=== PATIENT | male | born 1995 | race African-American/Black ===

== ENCOUNTER 2016-12-15 12:04 | Emergency (ER) | payer SELFPAY ==
[~2016-12-15 12:04] MED LIST: CEPHALEXIN 500 MG CAP PO SCH
[2016-12-15 12:10] VITALS: RESP 16; TEMP 97.9
--- NOTE | 2016-12-15 12:56 | EDPHY ---
H & P Stated Complaint: lac L wrist; inyentional self afflicted; hx cutting Time Seen by Provider: 12/15/16 12:41 HPI/ROS: CHIEF COMPLAINT: "I cut my wrist" HISTORY OF PRESENT ILLNESS: 20-year-old male history of cutting behavior in the ER voluntarily complaining of laceration to his left volar wrist. History of similar. Occurred shortly prior to arrival. No paresthesia distally. No motor deficits distally. Denies suicidal or homicidal ideation. PRIMARY CARE PROVIDER: REVIEW OF SYSTEMS: A ten point review of systems was performed and is negative with the exception of the items mentioned in the HPI PAST MEDICAL & SURGICAL HISTORY: History of cutting behavior, currently not seeing a therapist or taking medication all this has been prescribed him noting that he cannot afford therapist or for his medication. Tetanus out-of-date SOCIAL HISTORY:student. denies alcohol or drug use PHYSICAL EXAM (Prior to examination, patient consented to physical exam, hands were washed and my usual and customary physical exam procedures followed) 1) GENERAL: Well-developed, well-nourished, alert and oriented. Appears anxious . 2) HEAD: Normocephalic, atraumatic 3) HEENT: Pupils equal, round, reactive to light bilaterally. Sclera anicteric. 4) NECK: Full range of motion, no meningeal signs. 5) LUNGS: Clear auscultation bilaterally, no wheezes, no rhonchi, no retractions. 6) HEART: Regular rate and rhythm, no murmur, no heave, no gallop. 7) ABDOMEN: No guarding, no rebound, no focal tenderness, negative McBurney's, negative Howell's, negative Rovsing's, negative peritoneal sign, 8) MUSCULOSKELETAL: right upper extremity call multiple subacute healed lacerations, linear. Left upper extremity: Transverse volar wrist laceration measuring 6 cm, well demarcated, positive laceration to the palmaris longus with the distal portion visualized, proximal portion of tendon not visualized. Moving all extremities, no focal areas of tenderness, no obvious trauma. No peripheral edema or discoloration. 9) BACK: no obvious trauma, no visual or palpable abnormality. 10) SKIN: No rash, no petechiae. 11) Psychiatric: Patient is oriented X 3, there is no agitation. DIFFERENTIAL DIAGNOSIS: in no particular include but limited to laceration, suicide attempt, cutting behavior - Personal History Current Tetanus Diphtheria and Acellular Pertussis (TDAP): No - Medical/Surgical History Hx Asthma: Yes Other PMH: psych - Social History Smoking Status: Never smoked Constitutional: Initial Vital Signs Temperature (C) 36.6 C 12/15/16 12:08 Heart Rate 72 12/15/16 12:08 Respiratory Rate 16 12/15/16 12:08 Blood Pressure 145/83 H 12/15/16 12:08 O2 Sat (%) 100 12/15/16 12:08 O2 Delivery Mode Room Air Allergies/Adverse Reactions: beestings Allergy (Intermediate, Uncoded 12/15/16 12:07) Hives Home Medications: Medication Instructions Recorded Cephalexin [Keflex] 500 mg PO TID 7 Days cap 12/15/16 Medical Decision Making Procedures: Procedure: Laceration repair. I explained the indications, risks and benefits for both laceration repair and anesthetic administration. Verbal consent was obtained from the patient . The laceration on the left volar wrist was anesthetized using 0.5% bupivicaine without epinephrine . After anesthetic administered the patient was observed for a period of time and had no apparent adverse effects. The wound was cleaned , prepped, draped in normal sterile fashion and explored to its base. No foreign body seen, no foreign bodies palpated. Tendon injury is identified, see physical exam. The skin was closed with 11 simple interrupted 5 O Prolene suture . The wound repair was complex. The procedure was performed by myself. Patient has been informed that scarring will occur, although efforts have been made to minimize this. Procedure: Splint A velcro volar splint was applied by ER utility locate technician. After application of the splint I returned and re-examined the patient. The splint was adequately immobilizing the joint and distal to the splint the patient's circulation and sensation were intact. Patient shows no signs of compartment syndrome. Was given orthopedic precautions. ED Course/Re-evaluation: 1:19 p.m.: Consultation by Dr. Rich Peters in the emergency department who evaluated the patient. The patient has a noted likely palmaris longus laceration. Dr. Peters recommended primary closure of the skin, splint, follow up in office for further management. This patient's wound has been closed by myself, see procedure note, splinted, he will follow up with Dr. Rich Peters. I discussed the case with secondary supervising physician Dr. Sanders in the ER. Patient has a history of cutting behavior and adamantly denies suicidal ideation both initially and on repeat evaluation. Patient will not be placed on M1 hold at this time. I did recommend he follow up with a therapist met given him these resources. He will follow up with Hand surgery as well for further evaluation and outpatient management. - Data Points Medications Given: Discontinued Medications Cephalexin HCl (Keflex) 500 mg PO EDNOW ONE PRN Reason: Protocol Stop: 12/15/16 13:41 Last Admin: 12/15/16 14:22 Dose: 500 mg Diphtheria/Tetanus/Acell Pertussis (Boostrix) 0.5 ml IM .ONCE ONE Stop: 12/15/16 13:41 Last Admin: 12/15/16 14:41 Dose: Not Given Departure - Departure Disposition: Home, Routine, Self-Care Clinical Impression: cutting behavior Laceration of left wrist with tendon involvement Qualifiers: Encounter type: initial encounter Qualified Code(s): S61.512A - Laceration without foreign body of left wrist, initial encounter Condition: Good Instructions: Care For Your Stitches (ED), Laceration (ED) Additional Instructions: Return to the ER if you develop redness, swelling, discharge, warmth to the wound, red streaks going up your arm , or any other symptoms that concern you. Referrals: Rich Peters MD [Medical Doctor] - 5-7 days, call for appt. [facility],. [Clinic] - 1-2 days without fail Prescriptions: Cephalexin [Keflex] 500 mg PO TID 7 Days cap
[2016-12-15] MEDS ORDERED: CEPHALEXIN 500 MG CAP PO ONE ×2 (13:40)
[2016-12-15] MEDS ORDERED: TDAP ADULT 0.5 ML INJ (BOOSTRIX) IM ONE ×2 (13:40)
[2016-12-15 14:51] VITALS: BP 148/70; PULSE 78; O2SAT 98
== END 2016-12-15 14:58 | disposition home or self-care (01) ==
PROC: 0HQEXZZ Repair Left Lower Arm Skin, External Approach (ICD-10-PCS; principal; 2016-12-15)
DX: S61.512A Laceration without foreign body of left wrist, initial encounter (principal); J45.909 Unspecified asthma, uncomplicated; X78.8XXA Intentional self-harm by other sharp object, initial encounter
CPT/HCPCS: L3908